=== PATIENT | male | born 1965 | race Caucasian/White ===

== ENCOUNTER 2016-04-17 23:38 | Observation (INO) | payer OTHER ==
--- NOTE | 2016-04-18 | ER Document Report ---
ED Medical Screen (RME) - General Stated Complaint: RIGHT SIDE PAIN Time seen by provider: 23:57 Mode of Arrival: Ambulatory Information source: Patient Notes: 50-year-old male presents to ED for right upper quadrant abdominal pain/flank pain with nausea no vomiting. States he was seen at urgent care earlier today and they adelaida blood and sent him home without given him the results and they told him they thought he was given albuterol ultrasound patient states he has a history of thrombocytopenia. I have greeted and performed a rapid initial assessment of this patient. A comprehensive ED assessment and evaluation of the patient, analysis of test results and completion of medical decision making process will be conducted by an additional ED providers. TRAVEL OUTSIDE OF THE [place] IN LAST 30 DAYS: No - Related Data Allergies/Adverse Reactions: No Known Allergies Allergy (Unverified 06/13/10 12:56) Past Medical History - Past Medical History Cardiac Medical History: Reports: Hx Hypertension Denies: Hx Heart Attack Pulmonary Medical History: Denies: Hx Asthma, Hx Tuberculosis Neurological Medical History: Denies: Hx Cerebrovascular Accident, Hx Seizures Endocrine Medical History: Reports: Hx Diabetes Mellitus Type 2. Denies: Hx Graves' Disease, Hx Hyperthyroidism, Hx Hypothyroidism GI Medical History: Reports: Hx Irritable Bowel - hyper bowel. Denies: Hx Crohn 's Disease, Hx Gastroesophageal Reflux Disease, Hx Hepatitis, Hx Hiatal Hernia, Hx Liver Failure, Hx Ulcer Musculoskeltal Medical History: Denies Hx Arthritis, Denies Hx Fibromyalgia, Denies Hx Muscular Dystrophy Traumatic Medical History: Reports: Hx Fractures - l arm , r ankle Infectious Medical History: Denies: Hx Hepatitis Past Surgical History: Denies: Hx Colostomy, Hx Open Heart Surgery, Hx Pacemaker - Immunizations Hx Diphtheria, Pertussis, Tetanus Vaccination: Yes - 2010 Physical Exam - Vital signs Vitals: Temp Pulse Resp BP Pulse Ox 98.4 F 72 16 160/87 H 96 04/17/16 23:53 04/17/16 23:53 04/17/16 23:53 04/17/16 23:53 04/17/16 23:53 Course - Vital Signs Vital signs: Temp Pulse Resp BP Pulse Ox 98.4 F 72 16 160/87 H 96 04/17/16 23:53 04/17/16 23:53 04/17/16 23:53 04/17/16 23:53 04/17/16 23:53
[2016-04-18] MEDS ORDERED: ACETAMINOPHEN 325 MG TABLET PO ONE (00:01)
[2016-04-18 00:49] LABS: ABSOLUTE BASOPHILS # (AUTO) 0.1 10^3/uL (0.0-0.2); ABSOLUTE EOSINOPHILS # (AUTO) 0.4 10^3/uL (0.0-0.6); ABSOLUTE LYMPHOCYTES (AUTO) 1.4 10^3/uL (0.5-4.7); ABSOLUTE MONOCYTES (AUTO) 0.9 10^3/uL (0.1-1.4); ABSOLUTE NEUT (AUTO) 7.5 10^3/uL (1.7-8.2); BASOPHILS % (AUTO) 0.6 % (0-2); EOSINOPHILS % (AUTO) 3.8 % (0-6); HEMATOCRIT 50.1 % (37.9-51.0); HEMOGLOBIN 17.3 g/dL (13.5-17.0); HGB HCT DIFFERENCE 1.8; LYMPHOCYTES % (AUTO) 13.3 % (13-45); MEAN CORPUSCULAR HEMOGLOBIN 31.7 pg (27.0-33.4); MEAN CORPUSCULAR HGB CONC 34.5 g/dL (32.0-36.0); MEAN CORPUSCULAR VOLUME 92 fl (80-97); MONOCYTES % (AUTO) 9.1 % (3-13); RED BLOOD COUNT 5.45 10^6/uL (4.35-5.55); RED CELL DISTRIBUTION WIDTH 13.4 % (11.5-14.0); SEGMENTED NEUTROPHILS % (AUTO) 73.2 % (42-78); WHITE BLOOD COUNT 10.2 10^3/uL (4.0-10.5)
[2016-04-18 00:51] LABS: APPEARANCE,URINE CLEAR; BILIRUBIN,URINE NEGATIVE (NEGATIVE); GLUCOSE, URINE NEGATIVE (NEGATIVE); KETONES,URINE NEGATIVE (NEGATIVE); LEUKOCYTE ESTERASE,URINE NEGATIVE (NEGATIVE); NITRITE,URINE NEGATIVE (NEGATIVE); PROTEIN,URINE NEGATIVE (NEGATIVE); URINE SPECIFIC GRAVITY 1.005; UROBILINOGEN,URINE NEGATIVE mg/dL (<2.0)
[2016-04-18 01:07] LABS: ALANINE AMINOTRANSFERASE 106 U/L (21-72); ALKALINE PHOSPHATASE 72 U/L (38-126); ANION GAP 13 (5-19); ASPARTATE AMINO TRANSFERASE 65 U/L (17-59); BILIRUBIN,TOTAL 1.3 mg/dL (0.2-1.3); BLOOD UREA NITROGEN 12 mg/dL (7-20); CALCIUM 9.4 mg/dL (8.4-10.2); CARBON DIOXIDE 24 mmol/L (22-30); CHLORIDE 101 mmol/L (98-107); CREATININE RESULT 0.72 mg/dL (0.52-1.25); GLUCOSE 147 mg/dL (75-110); LIPASE 149.4 U/L (23-300); POTASSIUM 4.1 mmol/L (3.6-5.0); SODIUM 137.8 mmol/L (137-145); TOTAL PROTEIN 7.4 g/dL (6.3-8.2)
[2016-04-18] MEDS ORDERED: HYDROCODONE/ACETAMINOPHEN 5-325 MG TABLET PO ONE (06:38)
[2016-04-18] MEDS ORDERED: BUPIVACAINE HCL 0.25 % INJ/PF (2.5 MG/1 ML) 30 ML VIAL ONE (10:29)
[2016-04-18] MEDS ORDERED: NORMAL SALINE 1000 ML 1,000 ML IV ONE (10:30)
--- NOTE | 2016-04-18 10:30 | ER Document Report ---
ED General - General Chief Complaint: Flank Pain Stated Complaint: RIGHT SIDE PAIN Mode of Arrival: Ambulatory TRAVEL OUTSIDE OF THE [place] IN LAST 30 DAYS: No - HPI Patient complains to provider of: right flank right upper quadrant pain Notes: Patient coming in for evaluation of right flank right upper quadrant pain with nausea. Patient states started approximately 3 days ago patient has a history of gallstones patient states pain started at 3 was eating a steak. Patient states pain continued worsen overnight. Patient states last time he has left knee was at lunchtime day prior to arrival. Denies any fevers chills diarrhea. Patient states currently his PCP is evaluating his gallbladder pending and ultrasound as outpatient - Related Data Allergies/Adverse Reactions: No Known Allergies Allergy (Unverified 06/13/10 12:56) Past Medical History - General Information source: Patient - Social History Smoking Status: Smoker,Current Status Unk Family History: Reviewed & Not Pertinent Patient has suicidal ideation: No Patient has homicidal ideation: No - Past Medical History Cardiac Medical History: Reports: Hx Hypertension Denies: Hx Heart Attack Pulmonary Medical History: Denies: Hx Asthma, Hx Tuberculosis Neurological Medical History: Denies: Hx Cerebrovascular Accident, Hx Seizures Endocrine Medical History: Reports: Hx Diabetes Mellitus Type 2. Denies: Hx Graves' Disease, Hx Hyperthyroidism, Hx Hypothyroidism Renal/ Medical History: Denies: Hx Peritoneal Dialysis GI Medical History: Reports: Hx Irritable Bowel - hyper bowel. Denies: Hx Crohn 's Disease, Hx Gastroesophageal Reflux Disease, Hx Hepatitis, Hx Hiatal Hernia, Hx Liver Failure, Hx Ulcer Musculoskeltal Medical History: Denies Hx Arthritis, Denies Hx Fibromyalgia, Denies Hx Muscular Dystrophy Traumatic Medical History: Reports: Hx Fractures - l arm , r ankle Infectious Medical History: Denies: Hx Hepatitis Past Surgical History: Denies: Hx Colostomy, Hx Open Heart Surgery, Hx Pacemaker - Immunizations Hx Diphtheria, Pertussis, Tetanus Vaccination: Yes - 2010 Review of Systems - Review of Systems Constitutional: No symptoms reported EENT: No symptoms reported Cardiovascular: No symptoms reported Respiratory: No symptoms reported Gastrointestinal: Abdominal pain, Nausea Genitourinary: No symptoms reported Male Genitourinary: No symptoms reported Musculoskeletal: No symptoms reported Skin: No symptoms reported Hematologic/Lymphatic: No symptoms reported Neurological/Psychological: No symptoms reported -: Yes All other systems reviewed and negative Physical Exam - Vital signs Vitals: Temp Pulse Resp BP Pulse Ox 98.4 F 72 16 160/87 H 96 04/17/16 23:53 04/17/16 23:53 04/17/16 23:53 04/17/16 23:53 04/17/16 23:53 Interpretation: Normal - General General appearance: Appears well, Alert - HEENT Head: Normocephalic, Atraumatic Eyes: Normal Pupils: PERRL - Respiratory Respiratory status: No respiratory distress Chest status: Nontender Breath sounds: Normal Chest palpation: Normal - Cardiovascular Rhythm: Regular Heart sounds: Normal auscultation Murmur: No - Abdominal Inspection: Normal Distension: No distension Bowel sounds: Normal Tenderness: Tender - Tender to palpation of the right upper quadrant Organomegaly: No organomegaly - Back Back: Normal, Nontender - Extremities General upper extremity: Normal inspection, Nontender, Normal color, Normal ROM , Normal temperature General lower extremity: Normal inspection, Nontender, Normal color, Normal ROM , Normal temperature, Normal weight bearing. No: Radha's sign - Neurological Neuro grossly intact: Yes Cognition: Normal Orientation: AAOx4 [place] Com[place] Scale Eye Opening: Spontaneous [place] Com[place] Scale Verbal: Oriented [place] Coma Scale Motor: Obeys Commands [place] Coma Scale Total: 15 Speech: Normal Motor strength normal: LUE, RUE, LLE, RLE Sensory: Normal - Psychological Associated symptoms: Normal affect, Normal mood - Skin Skin Temperature: Warm Skin Moisture: Dry Skin Color: Normal Course - Re-evaluation Re-evalutation: 04/18/16 13:36 Patient presents for evaluation of right upper quadrant pain. Initial lab work showed only mild elevation in LFTs. Patient does have known gallbladder disease. Initially started off with a renal scan to evaluate for kidney stones was negative. I did offer the patient on ultrasound which she requested. Patient with ultrasound showing gallstones also gallstones are see in the CAT scan. Did discuss with surgeon on-call Dr Fajardo who agreed to evaluate the patient. After his evaluation agrees patient will be admitted for possible cholecystectomy. - Vital Signs Vital signs: Temp Pulse Resp BP Pulse Ox 97.5 F 74 18 113/110 H 96 04/18/16 11:36 04/18/16 06:27 04/18/16 11:36 04/18/16 11:36 04/18/16 11:36 - Laboratory Result Diagrams: 04/18/16 00:30 04/18/16 00:30 Laboratory results interpreted by me: 04/18/16 04/18/16 04/18/16 00:30 00:30 10:02 Hgb 17.3 H Plt Count 102 L Glucose 147 H POC Glucose 121 H AST 65 H ALT 106 H Discharge - Discharge Clinical Impression: Right upper quadrant pain, Chronic ITP (idiopathic thrombocytopenia), Smoker Cholelithiasis Qualifiers: Cholelithiasis location: gallbladder Cholecystitis presence: without cholecystitis Biliary obstruction: without biliary obstruction Qualified Code(s) : K80.20 - Calculus of gallbladder without cholecystitis without obstruction Hypertension Qualifiers: Hypertension type: essential hypertension Qualified Code(s): I10 - Essential ( primary) hypertension Diabetes mellitus Qualifiers: Diabetes mellitus type: type 2 Diabetes mellitus complication status: without complication Disposition: ADMITTED INPATIENT Admitting Provider: Surgicalist Unit Admitted: OR
[2016-04-18] MEDS ORDERED: ONDANSETRON HCL INJ/PF 4 MG/2 ML SDV IV PRN ×2 (10:54→16:07)
[2016-04-18] MEDS ORDERED: NORMAL SALINE 1000 ML 1,000 ML IV PRN (10:54)
--- NOTE | 2016-04-18 10:57 | PDOC H&P ---
History of Present Illness Admission Date/PCP: [facility] Patient complains of: Abdominal pain History of Present Illness: DARIO ESPINOSA is a 50 year old male who presents emergency department by ground rescue complaining of abdominal pain nausea. He was seen earlier today by acute care, had some blood work drawn, and the discharge home. Because of persistent symptoms evaluated in the emergency department where his found to have significant abdominal tenderness. CT scan of the abdomen and pelvis performed which showed gallstones. The liver irregular and lobulated. Patient reports similar symptoms prostate 5 years ago. He was seen also more hospital he was evaluated and again found to have Emanuel- lithiasis gallbladder ultrasound which showed sludge. He had a hida scan which showed no filling of the gallbladder. He improved clinically and was discharged home without undergoing surgery. Since that time the patient done reasonably well, has avoided heavy meals and fatty foods. Past Medical History Cardiac Medical History: Reports: Hypertension Denies: Myocardial Infarction Pulmonary Medical History: Denies: Asthma, Tuberculosis Neurological Medical History: Denies: Seizures Endocrine Medical History: Reports: Diabetes Mellitus Type 2 Denies: Hyperthyroidism, Hypothyroidism GI Medical History: Denies: Crohn's Disease, Gastroesophageal Reflux Disease, Hepatitis, Hiatal Hernia Musculoskeltal Medical History: Denies: Arthritis, Fibromyalgia Hematology: Denies: Anemia, Sickle Cell Disease Past Surgical History Past Surgical History: Reports: Other - Patient has had right arm or right leg; hernia repair Denies: Colostomy, Pacemaker Social History Smoking Status: Smoker,Current Status Unk Hx Recreational Drug Use: No Drugs: Other - Recent does smoke; drinks about 1 alcoholic beverage a week. Hx Prescription Drug Abuse: No Family History Family History: Reviewed & Not Pertinent Parental Family History Reviewed: Yes Children Family History Reviewed: Yes Sibling(s) Family History Reviewed.: Yes Medication/Allergy Home Medications: Valsartan [Diovan 160 mg Tablet] 160 mg PO DAILY 04/09/11 Allergies/Adverse Reactions: No Known Allergies Allergy (Unverified 06/13/10 12:56) Review of Systems Constitutional: ABSENT: chills, fever(s), headache(s), weight gain, weight loss Eyes: ABSENT: visual disturbances Cardiovascular: ABSENT: chest pain, dyspnea on exertion, edema, orthropnea, palpitations Genitourinary: ABSENT: dysuria, hematuria Musculoskeletal: ABSENT: joint swelling Integumentary: ABSENT: rash, wounds Psychiatric: ABSENT: anxiety, depression, homidical ideation, suicidal ideation Endocrine: ABSENT: cold intolerance, heat intolerance, polydipsia, polyuria Hematologic/Lymphatic: ABSENT: easy bleeding, easy bruising Physical Exam Vital Signs: Temp Pulse Resp BP Pulse Ox 98.3 F 74 18 150/82 H 98 04/18/16 06:27 04/18/16 06:27 04/18/16 06:27 04/18/16 06:27 04/18/16 06:27 Intake & Output 04/17/16 04/18/16 04/19/16 06:59 06:59 06:59 Weight 117.1 kg General appearance: PRESENT: no acute distress Head exam: PRESENT: normocephalic Eye exam: PRESENT: EOMI Mouth exam: PRESENT: moist Neck exam: PRESENT: full ROM Respiratory exam: PRESENT: clear to auscultation rosmery Cardiovascular exam: PRESENT: RRR Pulses: PRESENT: normal carotid pulses, normal radial pulses, normal femoral pulses Extremities exam: PRESENT: full ROM Neurological exam: PRESENT: awake Psychiatric exam: PRESENT: appropriate affect Skin exam: PRESENT: dry Results Laboratory Results: 04/18/16 00:30 04/18/16 00:30 04/18/16 04/18/16 04/18/16 00:30 00:30 00:30 WBC 10.2 RBC 5.45 Hgb 17.3 H Hct 50.1 MCV 92 MCH 31.7 MCHC 34.5 RDW 13.4 Plt Count 102 L Seg Neutrophils % 73.2 Lymphocytes % 13.3 Monocytes % 9.1 Eosinophils % 3.8 Basophils % 0.6 Absolute Neutrophils 7.5 Absolute Lymphocytes 1.4 Absolute Monocytes 0.9 Absolute Eosinophils 0.4 Absolute Basophils 0.1 Sodium 137.8 Potassium 4.1 Chloride 101 Carbon Dioxide 24 Anion Gap 13 BUN 12 Creatinine 0.72 Est GFR ( Amer) > 60 Est GFR (Non-Af Amer) > 60 Glucose 147 H Calcium 9.4 Total Bilirubin 1.3 AST 65 H ALT 106 H Alkaline Phosphatase 72 Total Protein 7.4 Albumin 4.0 Lipase 149.4 Urine Color STRAW Urine Appearance CLEAR Urine pH 6.0 Ur Specific [place] 1.005 Urine Protein NEGATIVE Urine Glucose (UA) NEGATIVE Urine Ketones NEGATIVE Urine Blood NEGATIVE Urine Nitrite NEGATIVE Ur Leukocyte Esterase NEGATIVE Urine WBC (Auto) 0 Urine RBC (Auto) 0 Impressions: Limited or Localized CT 04/18/16 06:16 IMPRESSION: 1. Cirrhosis. Splenomegaly. No ascites. 2. Cholelithiasis. 3. No evidence of urinary tract stones or hydronephrosis. Abdomen Ultrasound 04/18/16 07:16 IMPRESSION: Small echogenic liver with nodular contour from cirrhosis Multiple tiny shadowing stones in the gallbladder. No gallbladder wall thickening or pericholecystic fluid. The common bile duct at the sonia hepatis normal caliber. Distal most common duct not well seen due to duodenum gas Surgeons addendum: There is antegrade flow through the portal system. There is no fluid in the peritoneal cavity. There is stool in the colon. Status: Imported from PACS Assessment & Plan - Diagnosis (1) Cholelithiasis Qualifiers: Cholelithiasis location: gallbladder Cholecystitis presence: without cholecystitis Biliary obstruction: without biliary obstruction Qualified Code(s): K80.20 - Calculus of gallbladder without cholecystitis without obstruction Is this a current diagnosis for this admission?: YesPlan: 1. Patient has symptomatic cholelithiasis with cholecystitis. Problems are chronic. He deserves interval laparoscopic possible open cholecystectomy. I have reviewed the mechanics of the operation as well as the risks benefits and alternatives including bleeding infection and bile duct injury. Believe he understands and agrees to proceed. (2) Chronic ITP (idiopathic thrombocytopenia) Is this a current diagnosis for this admission?: YesPlan: 1. I have reviewed the patient's over the last 5 years. Currently running 102 which is the highest he is been. She does not take any medication for ITP. He denies free bleeding. 2. Spoke with Dr. laura pereira who has reviewed the patient with me. He had seen the patient in the past he believes it is safe to proceed with general anesthesia and laparoscopic cholecystectomy, and no additional medication is indicated (3) Diabetes mellitus Qualifiers: Diabetes mellitus type: type 2 - Time Time Spent: 50 to 70 Minutes Critical Time spent with patient: 15-24 minutes Anticipated discharge: Home - Inpatient Certification Based on my medical assessment, after consideration of the patient's comorbidities, presenting symptoms, or acuity I expect that the services needed warrant INPATIENT care.: Yes I certify that my determination is in accordance with my understanding of Medicare's requirements for reasonable and necessary INPATIENT services [42 CFR 412.3e].: Yes Medical Necessity: Need for IV Antibiotics, Need for Surgery
[2016-04-18] MEDS ORDERED: DEXAMETHASONE SOD PHOSPHATE INJ 4 MG/1 ML VIAL ONE (11:58)
[2016-04-18] MEDS ORDERED: ONDANSETRON HCL INJ/PF 4 MG/2 ML SDV ONE (11:58)
[2016-04-18] MEDS ORDERED: FENTANYL CITRATE INJ/PF 250 MCG/5 ML AMPULE ONE (11:58)
[2016-04-18] MEDS ORDERED: MIDAZOLAM 2 MG/2 ML INJ ONE ×2 (11:58→14:36)
[2016-04-18] MEDS ORDERED: PROPOFOL INJ 200 MG/20 ML VIAL IV ONE ×2 (11:59→14:36)
[2016-04-18] MEDS ORDERED: MORPHINE SULFATE 10 MG/ML INJ ONE (11:59)
[2016-04-18] MEDS ORDERED: ERTAPENEM SODIUM 1 GM in NORMAL SALINE 50 ML IV SCH (12:00)
[2016-04-18] MEDS ORDERED: HYDROMORPHONE HCL INJ/PF 2 MG/ML AMPULE ONE (14:35)
[2016-04-18] MEDS ORDERED: ACETAMINOPHEN 100 ML IV ONE (14:36)
[2016-04-18] MEDS ORDERED: FENTANYL CITRATE INJ/PF 100 MCG/2 ML AMPUL ONE (14:36)
[2016-04-18] MEDS ORDERED: CEFAZOLIN INJ 1 GM VIAL ONE (15:07)
[2016-04-18] MEDS ORDERED: FENTANYL CITRATE INJ/PF 100 MCG/2 ML AMPUL IV PRN ×3 (15:53)
[2016-04-18] MEDS ORDERED: DIPHENHYDRAMINE HCL 50 MG/ML VIAL IV PRN (15:53)
[2016-04-18] MEDS ORDERED: MORPHINE SULFATE 10 MG/ML INJ IV PRN (16:07)
--- NOTE | 2016-04-18 16:14 | Operative Report ---
Operative Report DATE OF SURGERY: 04/18/16 PREOPERATIVE DIAGNOSIS: 1. Symptomatic cholelithiasis with cholecystitis. 2. Cirrhosis POSTOPERATIVE DIAGNOSIS: Same OPERATION: 1. Laparoscopic cholecystectomy. 2. Laparoscopic liver biopsy SURGEON: TYRESE ESPINOSA ANESTHESIA: GA TISSUE REMOVED OR ALTERED: 1 gallbladder with stones. Liver biopsy COMPLICATIONS: None ESTIMATED BLOOD LOSS: 10 mL INTRAOPERATIVE FINDINGS: See below PROCEDURE: After obtaining informed consent, the patient was taken to the operating room. General Anesthesia was induced; the arms were extended, and the abdomen was exposed, and prepped and draped in a sterile fashion. Instrumentation was set up for laparoscopic cholecystectomy. Surgical plan and surgical timeout were conducted. A vertical incision was made above the umbilicus, and a verres needle was inserted uneventfully into the peritoneal cavity. Pneumoperitoneum was established. The verres needle was removed and a 5 mm trocar was inserted and a 5 mm flexible laparoscope was inserted. Visualization of the peritoneal cavity confirmed safe uneventful entry. Under direct visualization 3 additional 5 mm ports were established, one in the subxiphoid position and second in the subcostal position. The intra-abdominal findings were significant for a severely macro nodular liver. In addition the hepatic flexure was stuck to the inferior surface of the right lobe of the liver with a limited inflammatory peel. Gallbladder was markedly distended and abutted this area. The inflammation may have been due to the gallbladder adhesed to this area; the gallbladder was aspirated of approximately 100 mL of bile. We took the gallbladder down from the top using electrocautery. This was an excellent dissection under complete visualization. Cystic artery was encountered its usual location, clipped twice proximally once distally divided. At this point we had the gallbladder suspended solely from the cystic duct. The cystic duct was clipped distally, then the duct divided with scissors. The reason for this was to allow the cystic duct to drain of small stones. Once this was accomplished a PDS Endoloop was used to secure the cystic duct stump. We irrigated peritoneal cavity out and checked for bleeding from the liver surface and there was none. Because of the cirrhotic appearance of the liver, I felt that a biopsy was indicated. This was done by exposing the age of the right inferior surface of the lobe of the liver, grasping it with the dissector and then using the sharp disposable scissors with heat as a cauterizing agent, we removed a small 2 mm specimen of liver tissue. It was sent to pathology in a formalin container. At this point felt the operation was complete. The gallbladder was removed uneventfully from the supraumbilical port site incision and sent to pathology. We returned to the peritoneal cavity check for bleeding, and evidence of bile leak, and there was none. We Confirmed satisfactory placement of clips on cystic duct and cystic artery were secured . At this point we felt the operation was complete. The subcutaneous tissue was then anesthetized with quarter percent Marcaine Sponge and needle counts are correct. All ports removed under direct visualization pneumoperitoneum evacuated, and 5 mm port wounds closed with 3-0 Vicryl suture, benzoin and Steri-Strips. The patient was extubated, and taken to the recovery room in stable condition.
[2016-04-18] MEDS: MORPHINE SULFATE 10 MG/ML INJ IV PRN ×7 (17:13→21:55)
[2016-04-18] MEDS: LABETALOL HCL INJ 20 MG/4 ML DISP.SYRIN IV PRN ×3 (17:15→17:53)
[2016-04-18] MEDS: MEPERIDINE HCL/PF INJ 25 MG/1 ML DISP.SYRIN IV PRN ×5 (17:48→17:54)
[2016-04-18] MEDS: ONDANSETRON HCL INJ/PF 4 MG/2 ML SDV IV PRN ×4 (17:50→17:54)
[2016-04-18] MEDS: PROMETHAZINE HCL INJ 25 MG/1 ML VIAL IV PRN ×3 (17:50→17:54)
[2016-04-19 08:08] VITALS: BP 147/85
--- NOTE | 2016-04-19 08:43 | DISCHARGE SUMMARY E ---
Discharge Summary NAME: DARIO ESPINOSA : 1965 AGE: 50Y ADMITTED: 04/18/2016 DISCHARGED: 04/19/2016 ADMITTING DIAGNOSIS: Acute cholecystitis. DISCHARGE DIAGNOSIS: Cholecystitis. OPERATION: Laparoscopic cholecystectomy. HOSPITAL COURSE: On postoperative day 1, the patient is feeling better, tolerating a diet, had a bowel movement. Abdominal examination soft, nontender. He is doing very well. Discharge him home with home medications which includes [place] for the pain; Colace; stool softener and also antinausea medication Phenergan. Instructions given to the patient about not to lift any heavy weight, low carbohydrate, low-fat diet, ambulate very well, incentive spirometry and report to the hospital immediately if he develops any high fever, abdominal pain. He is asked also to call surgical office for appointment in about a week or 2. DICTATING PHYSICIAN: JUNO RASHID M.D. [id number] PHY#: [id number] ID: [id number] JOB#: [id number] ACCT: [id number] cc:Miya PARADA PA >
== END 2016-04-19 11:13 | disposition home or self-care (01) ==
LOC: ER 23:38 → INTOOBSV 04-18 10:41 → EH 04-18 10:41 → UNDOADMIN 04-18 11:30 → EH 04-18 11:30 → 2N 04-18 17:01
PROC: 0FT44ZZ Resection of Gallbladder, Percutaneous Endoscopic Approach (ICD-10-PCS; principal; 2016-04-17)
PROC: 0FB04ZX Excision of Liver, Percutaneous Endoscopic Approach, Diagnostic (ICD-10-PCS; 2016-04-17)
DX: K80.10 Calculus of gallbladder with chronic cholecystitis without obstruction (principal); K74.60 Unspecified cirrhosis of liver; K76.0 Fatty (change of) liver, not elsewhere classified; D69.3 Immune thrombocytopenic purpura; I10 Essential (primary) hypertension; E11.9 Type 2 diabetes mellitus without complications; F17.200 Nicotine dependence, unspecified, uncomplicated
CPT/HCPCS: 99285; 36415; 82962; 83690; 85025; 80053; 81001; 88304 ×2; 88307 ×2; 88313 ×2; 76705; 93976; 76380; 47562; 47379; G0378 ×3; J2250; J0690; J3010; J1335; J2270 ×2; J1170; J7030 ×2; J2704; J0131; 790; J1100; J2405